=== PATIENT | female | born 1955 | race Two or more races ===

== ENCOUNTER 2024-02-14 14:48 | Emergency (ER) | payer OTHER ==
[~2024-02-14] VITALS: Ht 152.4 cm; Wt 80.9 kg
--- NOTE | 2024-02-14 16:13 | DVH ---
LEFT LOWER EXTREMITY VENOUS DOPPLER CLINICAL HISTORY: leg pain swelling redness TECHNIQUE: Lower extremity venous Doppler study was performed. COMPARISON: None FINDINGS: The left common femoral, superficial femoral, popliteal, posterior tibial veins appear patent with n ormal augmentation, phasicity, compressibility and color-flow. . IMPRESSION: 1. No sonographic evidence of DVT in the left leg. HS:Y
--- NOTE | 2024-02-14 16:14 | ED.PDOC ---
Musculoskeletal HPI Comments HPI: 68-year-old female presents to emergency department from [facility] for evaluation of chronic left lower extremity wound/redness has been there for at least six months. Patient state that the pain is getting worse. Patient completed a course of Augmentin and doxycycline without improvement. She went to [facility] facility today who sent her here for further evaluation and treatment. Patient denies any other associated symptoms. Poor Historian. VITALS: Temp: 98.3 F RR: 19 02 sat : 96 % on room air HR: 69 BP: 163/78 PMH: Diabetes, hyperlipidemia, CHF, neuropathy, thyroid PSH: , ovary removed Social history: denies tobacco use, denies ETOH use, denies drug use Medications: denies Allergies: denies REVIEW OF SYSTEMS: CONSTITUTIONAL: Denies acute: fever, diaphoresis, chills, generalized weakness. HEAD: Denies acute: headache, photophobia Eyes: Denies acute: Double vision, vision loss, eye pain, eye discharge. EARS: Denies acute: tinnitus, hearing loss, ear discharge, ear pain, THROAT: Denies acute: sore throat, swelling, difficulty swallowing , pain with swallowing, change in voice. NECK: Denies acute: neck pain, neck swelling, stiff neck. HEART: Denies acute : chest pain, palpitations, LUNGS: Denies acute: SOB, wheezing, cough, hemoptysis ABDOMEN: Denies acute: abdominal pain, Nausea, Vomiting, diarrhea, melena , hematemesis, hematochezia SKIN: Denies acute: rash, lesions, itchiness. EXTREMITIES: Denies acute: calf pain, numbness, tingling, weakness, Denies acute: Low back pain. Neuro: Denies acute: focal neurological deficit, motor or sensory focal neurological deficit, tremors, seizure like activity, confusion, dizziness, change in mental status, loss of bowel or bladder function, cauda equina like symptoms. : Denies acute: dysuria, hematuria, flank pain, increase in urinary frequency. PSYCH: Denies acute: hallucination, suicidal ideation, homicidal ideation. FEMALE: Denies acute: abnormal vaginal bleeding, foul odor, unusual discharge. PHYSICAL EXAM: General: no acute distress, awake and alert. Head: normocephalic, atraumatic. Neck: supple, trachea is midline, no swelling. Throat: Normal phonation. Eyes:, no erythema, no purulent discharge, no proptosis, no icterus. Heart: regular rate, regular rhythm, no significant murmur appreciated. Lungs: no apparent respiratory distress, Able to speak in full sentences. No wheezing, no rhonchi, no crackles. No stridors Clear to auscultation bilaterally. Abdomen: non tender to palpation, non distended, soft, no guarding, no rebound, + bowel sounds. Obese Neuro: Awake, Alert, oriented to name, self, situation, follows commands GCS=15. Speech is normal. Skin: no petechia, no purpura, no cyanosis, non-pale, not jaundice. Lower extremities: --trace- Pitting edema no deformity, no focal swelling, no calf TTP. Evaluation of the right distal lower extremity: Patient is neurovascularly intact. Pedal pulses palpable. Motor and sensory are present. There is noted erythema and generalized edema at the anterior aspect of the left distal alvarenga with tenderness to palpation. No open wounds. Makes eye contact. moves all four extremities. Face: no apparent facial droop. Ambulating in the ED independently. Chief Complaint: Wound Check Time Seen by MD: 14:51 Reviewed Notes: Nurses Notes, Allergies Home Meds Active Scripts Clindamycin Hcl (Clindamycin Hcl) 300 Mg Cap, 300 MG PO TID for 7 Days, #21 CAP Prov:JUANI ROBLES DO 02/14/24 Information Source: Patient Mode of Arrival: Ambulatory Location: Left Was a procedure done? Was a procedure done?: No X-Ray, Labs, Meds, VS Vital Signs Date Time Temp Pulse Resp B/P (MAP) Pulse Ox O2 Delivery O2 Flow Rate FiO2 02/14/24 22:07 60 217/80 02/14/24 21:47 60 18 217/80 (125) 96 02/14/24 15:39 98.3 69 19 163/78 (106) 96 Lab Test 02/14/24 16:04 Range/Units White Blood Count 6.7 4.4-10.8 10^3/uL Red Blood Count 4.85 4.0-5.20 10^6/uL Hemoglobin 14.7 12.2-16.2 g/dL Hematocrit 43.3 36.0-46.0 % Mean Corpuscular Volume 89.3 80.0-100.0 fL Mean Corpuscular Hemoglobin 30.2 28.0-32.0 pg Mean Corpuscular Hemoglobin Concent 33.9 32.0-36.0 g/dL Red Cell Distribution Width 15.4 H 11.8-14.3 % Platelet Count 298 140-450 10^3/uL Mean Platelet Volume 7.4 6.9-10.8 fL Neutrophils (%) (Auto) 47.1 37.0-80.0 % Lymphocytes (%) (Auto) 42.7 10.0-50.0 % Monocytes (%) (Auto) 7.0 0.0-12.0 % Eosinophils (%) (Auto) 2.4 0.0-7.0 % Basophils (%) (Auto) 0.8 0.0-2.0 % Neutrophils # (Auto) 3.1 1.6-8.6 10 ^3/uL Lymphocytes # (Auto) 2.9 0.4-5.4 10 ^3/uL Monocytes # (Auto) 0.5 0-1.3 10 ^3/uL Eosinophils # (Auto) 0.2 0-0.8 10 ^3/uL Basophils # (Auto) 0.1 0-0.2 10 ^3/uL Nucleated Red Blood Cells 0.0 % Erythrocyte Sedimentation Rate 20 0-20 mm/hr Sodium Level 140 136-145 mmol/L Potassium Level 4.0 3.5-5.1 mmol/L Chloride Level 105 98-107 mmol/L Carbon Dioxide Level 27 20-31 mmol/L Anion Gap 8 5-15 Blood Urea Nitrogen 6 L 9-23 mg/dL Creatinine 1.03 H 0.550-1.02 mg/dL Glomerular Filtration Rate Calc 59 >90 mL/min BUN/Creatinine Ratio 5.8 L 10.0-20.0 Serum Glucose 127 H 74-106 mg/dL Lactic Acid Level 0.9 0.4-2.0 mmol/L Calcium Level 10.2 8.7-10.4 mg/dL C-Reactive Protein High Sensitivity 0.60 <1.0 mg/dL B-Type Natriuretic Peptide 25.77 0-100 pg/mL Current Medications Medications (Trade) Dose Ordered Sig/Alexis Route Start Time Stop Time Status Last Admin Clindamycin Phosphate 50 ml @ 50 mls/hr ONCE ONCE IV 02/14/24 21:45 02/14/24 22:44 02/14/24 22:09 Labetalol HCl (Labetalol HCl) 5 mg ONCE ONCE IV 02/14/24 21:45 02/14/24 21:46 DC 02/14/24 22:07 Acetaminophen/ Hydrocodone Bitart (Fajardo 5/325MG Tab) 1 tab ONCE ONCE PO 02/14/24 21:45 02/14/24 21:46 DC 02/14/24 22:06 [place] [address] Ph: [phone] DIAGNOSTIC IMAGING Diagnostic Imaging Report : [id number] Signed PATIENT: REGINE PRIETO ACCT: [id number] UNIT: [id number] : 1955 LOC: ER ROOM / BED: / AGE / SEX: 68 / F ADM STATUS: REG ER SERVICE 37 ORDERING PHYSICIAN: JUANI ROBLES DO PROCEDURE(s): LLDVT - LT Lower DVT REASON: leg pain swelling redness ORDER NUMBER(s): [id number], ACCESSION NUMBER(s): [id number] LEFT LOWER EXTREMITY VENOUS DOPPLER CLINICAL HISTORY: leg pain swelling redness TECHNIQUE: Lower extremity venous Doppler study was performed. COMPARISON: None FINDINGS: The left common femoral, superficial femoral, popliteal, posterior tibial veins appear patent with normal augmentation, phasicity, compressibility and color- flow. . IMPRESSION: 1. No sonographic evidence of DVT in the left leg. HS:Y ATED BY: FELIX JO MD DICTATED DATE/TIME: 02/14/241611 SIGNED BY: FELIX JO MD SIGNED DATE/TIME: 02/14/241611 CC: Time of 1ST Reevaluation: 22:05 (Patient refused to be discharged home. She is demanding to be admitted or transferred to [facility] she is also demanding IV antibiotics.) Time of 2ND Reevaluation: 22:11 (The case was discussed with the [facility] admitting team (HPI, physical exam, labs and diagnostic tests that were available at the time of disposition, ED course, treatment plan) on the phone. They agreed to transfer the patient to their service by ALS for further treatment evaluation. They requested a COVID swab. Dr. Madrid . authorization [id number]) Reevaluation 2ND: Improved Patient Education/Counseling: Diagnosis, Treatment Family Education/Counseling: No Family Present Comments MDM: Patient presented with the above HPI.----- left lower extremity pain and redness----- workup was initiated. patient was found with the above mentioned diagnosis. the following medications were ordered: denies the following tests were ordered: Left lower DVT study, EKG x 1, CRP, ESR, la ctic acid, BMP, CBC, BNP, Patient ED course and VS have been stabilized. Patient has been reassessed in the ED and remained in a stable condition. Patient has been observed in the ED adequate length of time to insure improvement/stability. Escalation of care considered: Consideration of escalation to observation or admission. patient was DISCHARGED after further evaluation and treatment of their presentation. All the reports of any imaging studies that were ordered by myself were reviewed by myself. Departure 1 Departure Time of Disposition: 18:08 Impression: Primary Impression: Left leg cellulitis Additional Impression: Hypertension Disposition: 02 SHORT TERM HOSPITAL Admit to: Tele Condition: Guarded Additional Instructions: Additional discharge instructions: You MUST follow-up with your primary care/family doctor in 1 to 2 days. If you are unable to see your primary care/family doctor, please return to our emergency room for re-assessment and re-evaluation in 1 to 2 days. Return to the emergency room here in our facility or to the nearest ER [facility] if your symptoms change or worsen. CONSULTATIONS: you MUST Follow-up for consultation as soon as possible with: -dermatology and vascular medicine. You MUST call the consultants office yourself to make an appointment. You may need to arrange that through your insurance and/or your primary/family doctor. If you are unable to see the presales consultant in 1 to 2 days, you must return to our emergency room (or any other ER of your choice) for re-assessment and re- evaluation. Adequate fluid hydration. Leg elevation. Below is a copy of your radiological report for follow up: [address] [address] Ph: [phone] DIAGNOSTIC IMAGING Diagnostic Imaging Report : [id number] Signed PATIENT: REGINE PRIETO ACCT: [id number] UNIT: [id number] : 1955 LOC: ER ROOM / BED: / AGE / SEX: 68 / F ADM STATUS: REG ER SERVICE 1538 ORDERING PHYSICIAN: JUANI ROBLES DO PROCEDURE(s): LLDVT - LT Lower DVT REASON: leg pain swelling redness ORDER NUMBER(s): [id number], ACCESSION NUMBER(s): [id number] LEFT LOWER EXTREMITY VENOUS DOPPLER CLINICAL HISTORY: leg pain swelling redness TECHNIQUE: Lower extremity venous Doppler study was performed. COMPARISON: None FINDINGS: The left common femoral, superficial femoral, popliteal, posterior tibial veins appear patent with normal augmentation, phasicity, compressibility and color- flow. . IMPRESSION: 1. No sonographic evidence of DVT in the left leg. HS:Y ATED BY: FELIX JO MD DICTATED DATE/TIME: 02/14/241611 SIGNED BY: FELIX JO MD SIGNED DATE/TIME: 02/14/241611 CC: e-Prescriptions Clindamycin Hcl (Clindamycin Hcl) 300 Mg Cap 300 MG PO TID for 7 Days, #21 CAP Prov: JUANI ROBLES DO 02/14/24 Discharged With: Self Critical Care Note Critical Care Time?: No I personally scribed for JUANI ROBLES DO ([email or web address]) on 02/14/24 at 16:14. Electronically submitted by Alex Rowley (AURELIA). I personally scribed for JUANI ROBLES DO ([email or web address]) on 02/14/24 at 17:21. Electronically submitted by Alex Rowley (mobile [email or web address]). I personally scribed for JUANI ROBLES DO ([email or web address]) on 02/14/24 at 17:30. Electronically submitted by Alex Rowley ([facility]). I personally scribed for JUANI ROBLES DO ([email or web address]) on 02/14/24 at 19:21. Electronically submitted by Alex Rowley ([facility]). I personally scribed for JUANI ROBLES DO ([email or web address]) on 02/14/24 at 19:22. Electronically submitted by [facility] Rowley ([facility]). I personally scribed for JUANI ROBLES DO ([facility]) on 02/14/24 at 21:17. Electronically submitted by Alex Rowley ([facility]). JUANI ROBLES DO Feb 14, 2024 16:14
[2024-02-14 16:25] LABS: Basophils # (auto) 0.1 10 ^3/uL (0-0.2); Basophils % (auto) 0.8 % (0.0-2.0); Eosinophils # (auto) 0.2 10 ^3/uL (0-0.8); Eosinophils % (auto) 2.4 % (0.0-7.0); Hematocrit 43.3 % (36.0-46.0); Hemoglobin 14.7 g/dL (12.2-16.2); Lymphocytes # (auto) 2.9 10 ^3/uL (0.4-5.4); Lymphocytes % (auto) 42.7 % (10.0-50.0); Mean Corpuscular Hemoglobin 30.2 pg (28.0-32.0); Mean Corpuscular Hgb Conc. 33.9 g/dL (32.0-36.0); Mean Corpuscular Volume 89.3 fL (80.0-100.0); Monocytes # (auto) 0.5 10 ^3/uL (0-1.3); Neutrophils # (auto) 3.1 10 ^3/uL (1.6-8.6); Neutrophils % (auto) 47.1 % (37.0-80.0); Platelet Count (auto) 298 10^3/uL (140-450); Red Blood Cells 4.85 10^6/uL (4.0-5.20); Red Cell Distribution Width 15.4 % (11.8-14.3); White Blood Cell 6.7 10^3/uL (4.4-10.8)
[2024-02-14 16:33] LABS: Chloride 105 mmol/L (98-107); Sodium 140 mmol/L (136-145)
[2024-02-14 16:34] LABS: Anion Gap 8 (5-15); Calcium 10.2 mg/dL (8.7-10.4); Carbon Dioxide 27 mmol/L (20-31)
[2024-02-14 16:39] LABS: BUN/Creatinine Ratio 5.8 (10.0-20.0)
[2024-02-14 16:40] LABS: Blood Urea Nitrogen 6 mg/dL (9-23); Glucose 127 mg/dL (74-106)
[2024-02-14 16:55] LABS: Erythrocyte Sedimentation Rate 20 mm/hr (0-20)
[2024-02-14] MEDS ORDERED: CLIN1CAP70 PO (18:13)
[2024-02-14] MEDS: HYDROcodone-ACET 5/325MG TAB PO ONE (22:06)
[2024-02-14] MEDS: LABETALOL HCL 20 MG/4 ML VL IV ONE (22:07)
[2024-02-14] MEDS: CLINDAMYCIN 600MG IV 50 ML IV ONE (22:09)
[2024-02-15 02:47] VITALS: PULSE 51; RESP 18; O2SAT 95
[2024-02-15 05:28] VITALS: PULSE 51; RESP 13; O2SAT 97
[2024-02-15] MEDS: MORPHINE SULFATE 4 MG/ML SYR/VIAL IV ONE (05:51)
[2024-02-15] MEDS: ONDANSETRON HCL 4 MG/2 ML VIAL IV ONE (05:52)
[2024-02-15 08:05] VITALS: PULSE 45; RESP 12; O2SAT 100
[2024-02-15 08:31] VITALS: BP 125/56; PULSE 43; RESP 12; TEMP 96.7; O2SAT 100
--- NOTE | 2024-02-17 15:23 | ECG ---
[facility] Test Date: 2024-02-15 Test Time: 00:08:31 Pat Name: REGINE PRIETO Department: ER Room: Gender: F Match Up Person: PAMELA : 1955 Requested By: JUANI ROBLES Order Number: [id number] Reading MD: Janusz Blake Measurements Intervals [place] Rate: 47 P: 48 AL: 183 QRS: 1 QRSD: 97 T: 48 QT: 502 QTc: 444 Interpretive Statements Sinus bradycardia Low voltage, precordial leads RSR' in V1 or V2, right VCD or RVH Probable left ventricular hypertrophy Borderline T abnormalities, anterior leads ST elevation, consider inferior injury Electronically Signed On 02-18-2024 13:04:12 PST by Janusz Blake Please click the below link to view image of tracing.
== END 2024-02-15 09:52 | disposition short-term general hospital (02) ==
LOC: ER 14:48
DX: L03.116 Cellulitis of left lower limb (principal); I11.0 Hypertensive heart disease with heart failure; I50.9 Heart failure, unspecified; E78.5 Hyperlipidemia, unspecified; E11.40 Type 2 diabetes mellitus with diabetic neuropathy, unspecified; Z90.721 Acquired absence of ovaries, unilateral
CPT/HCPCS: 36415; 80048; 83605; 83880; 85025; 85652; 86141; 93005; 93971; 96365; 96375; 99285; J2270; J2405; J3490